=== PATIENT | male | born 1955 | race Caucasian/White ===

== ENCOUNTER 2018-02-09 11:18 | Emergency (ER) | payer OTHER ==
[~2018-02-09] VITALS: Ht 165.1 cm; Wt 63.5 kg
[2018-02-09 11:23] VITALS: Ht 165.1 cm; Wt 63.5 kg
[2018-02-09 13:31] LABS: CARBON DIOXIDE 28.3 mmol/L (21-32); CHLORIDE SERUM 105 mmol/L (98-107); GFR1 > 60 mL/min; GLUCOSE SERUM 99 mg/dL (74-106); POTASSIUM SERUM 4.5 mmol/L (3.5-5.1); SODIUM SERUM 141 mmol/L (136-145)
[2018-02-09 13:35] LABS: ALBUMIN 3.6 g/dL (3.4-5.0); ALKALINE PHOSPHATASE 122 U/L (46-116); ALT/SGPT 31 U/L (16-63); AST/SGOT 29 U/L (15-37); BILIRUBIN TOTAL 0.71 mg/dL (0.20-1.00); TOTAL PROTEIN, SERUM 7.4 g/dL (6.4-8.2)
[2018-02-09 14:15] VITALS: BP 117/72
== END 2018-02-09 14:15 | disposition home or self-care (01) ==
LOC: ED 11:18
PROVIDERS: Specialist
DX: G40.89 Other seizures (principal); I10 Essential (primary) hypertension